=== PATIENT | male | born 2000 | race Two or more races ===

== ENCOUNTER 2019-07-05 10:39 | Emergency (ER) | payer SELFPAY ==
[~2019-07-05] VITALS: Ht 165.1 cm; Wt 79.0 kg
[2019-07-05 11:11] VITALS: BP 151/88
--- NOTE | 2019-07-05 11:25 | NUR ---
PT HERE WITH C/O SORE THROAT AND HEADACHE X 1 WEEK. PT ABLE TO TALK BUT STATES IT'S PAINFUL.
[2019-07-05] MEDS ORDERED: DEXAMETHASONE 4 MG TABLET PO ONE (12:00)
[2019-07-05] MEDS ORDERED: DEXAMETHASONE 4 MG TABLET ONE (12:08)
--- NOTE | 2019-07-05 12:10 | NUR ---
PT MEDICATED PER ORDER.
--- NOTE | 2019-07-05 12:26 | NUR ---
Patient/Caregiver given discharge instructions and they have confirmed that they understand the instructions. Patient ambulatory with steady gait.
== END 2019-07-05 12:27 | disposition home or self-care (01) ==
LOC: ED 12:21
DX: J02.8 Acute pharyngitis due to other specified organisms (principal); B34.9 Viral infection, unspecified
CPT/HCPCS: 87081; 87880; 99283